=== PATIENT | female | born 1995 ===

== ENCOUNTER 2018-06-15 09:22 | Day surgery (SDC) | payer OTHER ==
[~2018-06-15] VITALS: Ht 154.9 cm; Wt 51.7 kg
[2018-06-15] VITALS (9 sets, daily range): BP systolic 107–125; BP diastolic 52–76
--- NOTE | 2018-06-15 07:50 | Pre-Procedure Note/Attestation ---
Pre-Procedure Note/Attestation Complete Prior to Procedure Planned Procedure: left Procedure Narrative: shoulder arthroscopy, sad Indications for Procedure Pre-Operative Diagnosis: left shoulder internal derangment Attestation I attest that I discussed the nature of the procedure; its benefits; risks and complications; and alternatives (and the risks and benefits of such alternatives ), prior to the procedure, with the patient (or the patient's legal manufacturer's service representative). I attest that, if there was a reasonable possibility of needing a blood transfusion, the patient (or the patient's legal manufacturer's service representative) was given the [facility] standardized written summary, pursuant to the Sy Nasim Blood Safety Act ([place] Health and Safety Code # 1645, as amended). I attest that I re-evaluated the patient just prior to the surgery and that there has been no change in the patient's H&P, except as documented below: Eagle Moreno MD Jun 15, 2018 07:50
--- NOTE | 2018-06-15 07:50 | Operative Note - PDOC ---
Operative Note Operative Note Pre-op Diagnosis: left shoulder internal derangment Procedure: see op report Post-op Diagnosis: same as pre-op plus Operative Findings: consistent w/pre-op dx studies Anesthesia: MAC Specimen: none Complications: none Condition: stable Estimated Blood Loss: none Implant(s) used?: No Eagle Moreno MD Jun 15, 2018 07:50
[~2018-06-15 09:22] MED LIST: ceFAZolin 1gm IVPB IVPB ONE; celeBREX 200mg Cap **SURGERY PATIENTS ONLY ORAL ONE; oxyCONTIN 20mg tab ORAL ONE
[2018-06-15] MEDS ORDERED: NKM (11:39)
[2018-06-15] MEDS ORDERED: celeBREX 200mg Cap **SURGERY PATIENTS ONLY ORAL ONE (12:09)
[2018-06-15] MEDS ORDERED: oxyCONTIN 20mg tab ORAL ONE (12:09)
[2018-06-15] MEDS ORDERED: Midazolam 2mg/2ml Inj ONE (14:25)
[2018-06-15] MEDS ORDERED: LR 1000ml ONE (14:25)
[2018-06-15] MEDS ORDERED: fentaNYL 100 mcg/2 mL IV ONE (14:25)
[2018-06-15] MEDS ORDERED: Acetaminophen (Non formulary) 100 ML IV ONE (14:30)
[2018-06-15] MEDS ORDERED: Metoclopramide 10mg/2ml Inj IVP PRN (14:30)
[2018-06-15] MEDS ORDERED: fentaNYL 100 mcg/2 mL IV PRN (14:30)
[2018-06-15] MEDS ORDERED: Kenalog-40 1ml Vial ONE (14:32)
[2018-06-15] MEDS ORDERED: Morphine Sulfate PF 10 ML ONE (14:32)
[2018-06-15] MEDS ORDERED: Ketorolac 30mg Inj ONE (14:32)
[2018-06-15] MEDS ORDERED: Bupivacaine 0.25% Inj 30ml INJ ONE (14:33)
[2018-06-15] MEDS ORDERED: Bupivacaine w/Epi 0.5% 30ml Vial INJ ONE (14:33)
[2018-06-15] MEDS ORDERED: NS Irrig 4000ml IRRIG ONE (15:00)
[2018-06-15] MEDS ORDERED: Metoclopramide 10mg/2ml Inj ONE (15:29)
[2018-06-15] MEDS ORDERED: Glycopyrrolate 0.2mg/ml 1ml Vial ONE (15:29)
[2018-06-15] MEDS ORDERED: Propofol 200mg/20ml IV ONE (15:29)
[2018-06-15] MEDS ORDERED: Neostigmine 1mg/ml 10ml Inj ONE (15:29)
[2018-06-15] MEDS ORDERED: Lidocaine 1% MPF 10mg/ml 5ml ONE (15:29)
--- NOTE | 2018-06-15 15:36 | Anethesia Preoperative Eval ---
Anesthesia Pre-op PMH/ROS General Date of Evaluation: Jun 15, 2018 Time of Evaluation: 14:30 Anesthesiologist: maddie ASA Score: ASA 1 Mallampati Score Class I : Soft palate, uvula, fauces, pillars visible Class II: Soft palate, uvula, fauces visible Class III: Soft palate, base of uvula visible Class IV: Only hard plate visible Mallampati Classification: Class II Anesthesia History: none Family History: no anesthesia problems Allergies: Coded Allergies: No Known Allergies (Unverified , 06/14/18) Medications: see eMAR Patient NPO?: Yes NPO Date: Jun 15, 2018 NPO Time: 00:01 Past Medical History Cardiovascular: Denies: HTN, CAD, NV, valve dz, arrhythmia, other Pulmonary: Denies: asthma, COPD, LUIS, other Gastrointestinal/Genitourinary: Denies: GERD, CRI, ESRD, other Neurologic/Psychiatric: Denies: dementia, CVA, depression/anxiety, TIA, other Endocrine: Denies: DM, hypothyroidism, steroids, other HEENT: Denies: cataract (L), cataract (R), glaucoma, [place] (L), [place] (R), other Hematology/Immune: Denies: anemia, DVT, bleeding disorder, other Musculoskeletal/Integumentary: Denies: OA, RA, DJD, DDD, edema, other PSxH Narrative: none Anesthesia Pre-op Phys. Exam Physician Exam Last Vital Signs Date Time Temp Pulse Resp B/P (MAP) Pulse Ox O2 Delivery O2 Flow Rate FiO2 06/15/18 11:54 98.6 79 20 107/52 99 Room Air Constitutional: NAD Neurologic: CN 2-12 intact Cardiovascular: RRR Respiratory: CTA Gastrointestinal: S/NT/ND Airway Exam Mallampati Classification 2 Mallampati Score: Class II MO: full Neck: normal ROM: full Dentures: no upper, no lower Anesthesia Pre-op A/P Labs Urine Test Test 06/15/18 09:48 Urine HCG, Qualitative Negative (NEGATIVE) Studies Pre-op Studies: EKG - sr Risk Assessment & Plan Plan: general/peripheral nerve block Pre-Antibiotics Drug: ancef Given Within 1 Hr of Incision: Yes Time Given: 15:15 Bonita Craig CRNA Jun 15, 2018 15:36
--- NOTE | 2018-06-15 16:15 | Immediate Post-Op Evaluation ---
Immediate Post-Op Evalulation Immediate Post-Op Evalulation Procedure: shoulder arthroscopy; SAD Date of Evaluation: Jun 15, 2018 Time of Evaluation: 16:14 IV Fluids: 1000 Blood Pressure Systolic: 125 Blood Pressure Diastolic: 75 Pulse Rate: 66 Respiratory Rate: 14 O2 Sat by Pulse Oximetry: 100 Temperature (Fahrenheit): 97.4 Pain Score (1-10): 0 Nausea: No Vomiting: No Patient Status: awake, reacts, patent Hydration Status: adequate Drug: ancef Given Within 1 Hr of Incision: Yes Time Given: 15:15 Bonita Craig CRNA Jun 15, 2018 16:15
--- NOTE | 2018-06-15 17:23 | 48 Hour Post Anesthesia Eval ---
Post Anesthesia Evaluation Procedure: shoulder arthroscopy; SAD Date of Evaluation: Jun 15, 2018 Time of Evaluation: 17:21 Blood Pressure Systolic: 113 0: 67 Pulse Rate: 77 Respiratory Rate: 14 Temperature (Fahrenheit): 97.1 O2 Sat by Pulse Oximetry: 100 Airway: patent Nausea: No Vomiting: No Hydration Status: adequate Cardiopulmonary Status: stable Mental Status/LOC: patient returned to baseline Post-Anesthesia Complications: none Bonita Craig CRNA Jun 15, 2018 17:23
[2018-06-15] MEDS ORDERED: HYDROmorphone 1mg/ml Carpuject SUBQ PRN (20:01)
[2018-06-15] MEDS ORDERED: Norco 5mg/325mg tab ORAL PRN (20:01)
[2018-06-15] MEDS ORDERED: Tylenol #3 tab (300mg/30mg) ORAL PRN (20:01)
[2018-06-15] MEDS ORDERED: D5 1/2NS 1,000 ML IV SCH (20:01)
--- NOTE | 2018-06-15 20:45 | Operative Note - Dictated ---
DATE OF OPERATION: 06/15/2018 PREOPERATIVE DIAGNOSES: 1. Right shoulder traumatic bursitis. 2. Right shoulder biceps tendinitis. 3. Rotator cuff tendinosis. POSTOPERATIVE DIAGNOSES: 1. Right shoulder traumatic bursitis. 2. Right shoulder biceps tendinitis. 3. Rotator cuff tendinosis. PROCEDURES: 1. Right shoulder diagnostic arthroscopy. 2. Right shoulder subacromial decompression bursectomy. SURGEON: Eagle Moreno M.D. ANESTHESIA: Interscalene with general. INDICATION FOR PROCEDURE: The patient is a pleasant female, who has had progressive right shoulder pain. She had failed conservative treatment and elected to undergo right shoulder diagnostic arthroscopy with subacromial decompression bursectomy. Risks, limitations, expectations, and complications of procedure were discussed in detail. All questions addressed. DESCRIPTION OF PROCEDURE: After informed consent was obtained, the patient was brought to the operative room. The patient was placed under interscalene general anesthesia. Left shoulder was prepped and draped in a sterile manner. Time-out was performed. Posterolateral skin incision was then made. Trocar was removed into the glenohumeral joint. No significant chondral damage. The anterior labrum was intact. The biceps tendon was intact. The footprint of the supraspinatus and infraspinatus was intact. At this point, the camera was placed and the hypertrophic bursal tissue. Lateral working portal was established. The undersurface of the acromion was identified. A 4 mm of the acromion was resected from lateral to medial and then from posterior to anterior. Once that was done, a complete bursectomy was performed. Initially, had significant hypertrophic bursal tissues and subdeltoid bursa with the adhesions. Once this was removed, instruments removed. Portal sites were closed with 3-0 Monocryl sutures. Steri-Strips and a sterile dressing were applied. The patient was awoken and taken to recovery room with stable vital signs. ESTIMATED BLOOD LOSS: None. COMPLICATIONS: None. SPECIMENS: None. IMPLANTS: None. Eagle Moerno M.D. DR: TOMMY JOB#: [id number] CC: ELÍAS
== END 2018-06-15 17:45 | disposition home or self-care (01) ==
LOC: SUR 09:22
DX: M75.51 Bursitis of right shoulder (principal); M75.91 Shoulder lesion, unspecified, right shoulder
CPT/HCPCS: 29822; 81025; J0690; J1885; J2250; J2274; J2405; J2704; J2710; J2765; J3010; J3301; J3490; 94003; 94150